=== PATIENT | male | born 1990 | race African-American/Black ===

== ENCOUNTER 2022-07-19 23:37 | Emergency (ER) | payer SELFPAY ==
[2022-07-20 00:15] LABS: Urine Blood Negative (Negative); Urine Glucose Negative (Negative); Urine Protein Negative (Negative); Urine Specific Gravity >=1.030 (1.005-1.030); Urine pH 5.5 (5.0-7.0)
[2022-07-20 00:37] LABS: Urine Bacteria <20 /HPF (<20); Urine Mucus 1+ /HPF (None Seen); Urine RBC <5 /HPF (None Seen)
[2022-07-20] MEDS ORDERED: CEFTRIAXONE 250 MG/VIAL ONE (00:45)
[2022-07-20] MEDS ORDERED: WATER FOR INJ,STERILE 10 ML ONE (00:46)
[2022-07-20] MEDS ORDERED: AZITHROMYCIN 250 MG TAB ONE (00:46)
--- NOTE | 2022-07-20 01:29 | ER ---
Nurse's Notes [facility] Name: Sebastian Wills Jr Age: 32 yrs Sex: Male : 1990 Arrival Date: 07/19/2022 Time: 23:39 Bed 16 Private MD: Diagnosis: Encounter for screening for infections with a predominantly sexual mode of transmission Presentation: 07/19 23:44 Chief complaint: White discharge from penis and burning with urination x 3 days, lower hb abdominal pain today. Coronavirus screen: At this time, the client does not indicate any symptoms associated with coronavirus-19. Ebola Screen: No symptoms or risks identified at this time. Initial Sepsis Screen: Does the patient meet any 2 criteria? No. Patient's initial sepsis screen is negative. Does the patient have a suspected source of infection? No. Patient's initial sepsis screen is negative. Risk Assessment: Do you want to hurt yourself or someone else? Patient reports no desire to harm self or others. Onset of symptoms was July 19, 2022. 23:44 Method Of Arrival: Ambulatory hb 23:44 Acuity: SANDY 3 hb 23:45 Initial Sepsis Screen: Does the patient meet any 2 criteria? Does the patient have a tw5 suspected source of infection? Yes:. Triage Assessment: 23:53 General: Appears in no apparent distress. Behavior is appropriate for age. GI: Abdomen ke1 is round non-distended. 07/20 00:00 Pain: Complains of pain in PENIS Pain currently is 0 out of 10 on a pain scale. at ke1 worst was 8 out of 10 on a pain scale. level that patient reports is acceptable is 3 out of 10 on a pain scale. Quality of pain is described as burning. Historical: - Allergies: 07/19 23:45 No Known Allergies; hb - Home Meds: 23:45 None [Active]; hb - PMHx: 23:45 None; hb - PSHx: 23:45 None; hb - Immunization history:: Adult Immunizations Client reports having NOT received the Covid vaccine. - Social history:: Smoking status: Patient reports the use of cigarette tobacco products, smokes one pack cigarettes per day. Screenin:53 Abuse screen: Denies threats or abuse. Nutritional screening: No deficits noted. ke1 Tuberculosis screening: No symptoms or risk factors identified. Fall Risk None identified. Assessment: 07/20 00:00 GI: Bowel sounds present X 4 quads. ke1 01:10 Reassessment: No changes from previously documented assessment. Patient is alert, ke1 oriented x 3, equal unlabored respirations, skin warm/dry/pink. 01:10 GI: Abd is soft and non tender. ke1 Vital Signs: 07/19 23:44 BP 158 / 76; Pulse 86; Resp 16; Temp 98.4; Pulse Ox 98% on R/A; Weight 83.91 kg; Height hb 6 ft. (182.88 cm); Pain 7/10; 07/20 01:31 BP 150 / 74; Pulse 82; Resp 17; Temp 98.3; Pulse Ox 100% on R/A; Pain 0/10; ke1 07/19 23:44 Body Mass Index 25.09 (83.91 kg, 182.88 cm) hb ED Course: 07/19 23:39 Patient arrived in ED. as 23:41 Boogie Haley PA is PHCP. cp 23:41 Monik Dee MD is Attending Physician. cp 23:45 Triage completed. hb 23:45 Arm band placed on. hb 23:47 Pavel Landin, HUMBERTO is Primary Nurse. ke1 23:54 Bed in low position. Call light in reach. ke1 07/20 00:14 Urine Microscopic Only Sent. ke1 00:46 CT Stone Protocol In Process Unspecified. EDMN 01:32 No provider procedures requiring assistance completed. ke1 01:59 Patient did not have IV access during this emergency room visit. ke1 Administered Medications: 00:51 Drug: Rocephin (cefTRIAXone) 250 mg Route: IM; Site: left deltoid; ke1 01:31 Follow up: Response: No adverse reaction ke1 00:51 Drug: Zithromax (azithromycin) 1 grams Route: PO; ke1 01:31 Follow up: Response: No adverse reaction ke1 Medication: 01:33 VIS not applicable for this client. ke1 Outcome: 01:28 Discharge ordered by . cp 01:59 Discharged to home ambulatory. ke1 01:59 Condition: good 01:59 Discharge instructions given to patient. 02:00 Patient left the ED. ke1 Signatures: Dispatcher [employer] EDMN Neftali, Boogie Sanchez PA PA cp Baxter, Heather, RN RN Charisse Valdes tw5 Pavel Landin RN RN ke1
--- NOTE | 2022-07-20 01:29 | EDPHYS ---
Physician Documentation [facility] Name: Sebastian Wills Jr Age: 32 yrs Sex: Male : 1990 Arrival Date: 07/19/2022 Time: 23:39 Bed 16 Private MD: CARLOS Physician Monik Dee HPI: 07/20 00:05 This 32 yrs old Black Male presents to ER via Ambulatory with complaints of Abdominal cp Pain. 00:05 The patient presents with abdominal pain in the lower abdomen. Onset: The cp symptoms/episode began/occurred today. The symptoms do not radiate. Associated signs and symptoms: Pertinent positives: dysuria, penile discharge. The symptoms are described as constant. Severity of pain: in the emergency department the pain is unchanged despite home interventions. Patient reports having unprotected intercourse with new partner and concerned about STD. Historical: - Allergies: 07/19 23:45 No Known Allergies; hb - Home Meds: 23:45 None [Active]; hb - PMHx: 23:45 None; hb - PSHx: 23:45 None; hb - Immunization history:: Adult Immunizations Client reports having NOT received the Covid vaccine. - Social history:: Smoking status: Patient reports the use of cigarette tobacco products, smokes one pack cigarettes per day. ROS: 07/20 00:10 Constitutional: Negative for body aches, chills, fever, poor PO intake. cp 00:10 Eyes: Negative for injury, pain, redness, and discharge. cp 00:10 ENT: Negative for drainage from ear(s), ear pain, sore throat, difficulty swallowing, difficulty handling secretions. 00:10 Cardiovascular: Negative for chest pain, palpitations. 00:10 Respiratory: Negative for cough, shortness of breath, wheezing. 00:10 Abdomen/GI: Positive for abdominal pain, of the suprapubic area, Negative for vomiting, diarrhea, constipation. 00:10 : Positive for burning with urination, penile discharge. 00:10 Neuro: Negative for altered mental status, dizziness, headache, weakness. 00:10 All other systems are negative. Exam: 00:15 Constitutional: The patient appears in no acute distress, alert, awake, non-toxic, well cp developed, well nourished. 00:15 Head/Face: Normocephalic, atraumatic. cp 00:15 Eyes: Periorbital structures: appear normal, Conjunctiva: normal, no exudate, no injection, Sclera: no appreciated abnormality, Lids and lashes: appear normal, bilaterally. 00:15 ENT: External ear(s): are unremarkable, Nose: is normal, Mouth: Lips: moist, Oral mucosa: pink and intact, moist, Posterior pharynx: Airway: no evidence of obstruction, patent. 00:15 Chest/axilla: Inspection: normal. 00:15 Cardiovascular: Rate: normal. 00:15 Respiratory: the patient does not display signs of respiratory distress, Respirations: normal, no use of accessory muscles, no retractions, labored breathing, is not present. 00:15 Abdomen/GI: Inspection: abdomen appears normal, Bowel sounds: active, all quadrants, Palpation: soft, in all quadrants, mild abdominal tenderness, in the suprapubic area, rebound tenderness, is not appreciated, involuntary guarding, is not appreciated. 00:15 Back: CVA tenderness, is absent. Vital Signs: 07/19 23:44 BP 158 / 76; Pulse 86; Resp 16; Temp 98.4; Pulse Ox 98% on R/A; Weight 83.91 kg; Height hb 6 ft. (182.88 cm); Pain 7/10; 07/20 01:31 BP 150 / 74; Pulse 82; Resp 17; Temp 98.3; Pulse Ox 100% on R/A; Pain 0/10; ke1 07/19 23:44 Body Mass Index 25.09 (83.91 kg, 182.88 cm) hb MDM: 07/19 23:45 Patient medically screened. cp 07/20 00:00 Differential diagnosis: Pyelonephritis, Ureterolithiasis, urinary tract infection, STD. cp 01:28 Data reviewed: vital signs, nurses notes, lab test result(s), radiologic studies, CT cp scan. 01:28 Counseling: I had a detailed discussion with the patient and/or guardian regarding: the cp historical points, exam findings, and any diagnostic results supporting the discharge/admit diagnosis, lab results, radiology results, the need for outpatient follow up, a family practitioner, to return to the emergency department if symptoms worsen or persist or if there are any questions or concerns that arise at home. 01:28 Special discussion: Based on the patient's Hx, exam, and Dx evaluation, there is no cp indication for emergent surgery or inpatient Tx. It is understood by the patient/guardian that if the Sx's persist or worsen they need to return immediately for re-evaluation. 07/19 23:59 Order name: Urine Microscopic Only; Complete Time: 01:22 cp 07/20 01:23 Interpretation: Reviewed. 07/20 00:16 Order name: Urine Dipstick-Ancillary; Complete Time: 00:23 EDME 07/19 23:59 Order name: CT Stone Protocol 07/20 00:43 Order name: Urine Culture EDME 07/19 23:59 Order name: Urine Dipstick-Ancillary (obtain specimen); Complete Time: 00:14 cp Administered Medications: 00:51 Drug: Rocephin (cefTRIAXone) 250 mg Route: IM; Site: left deltoid; ke1 01:31 Follow up: Response: No adverse reaction ke1 00:51 Drug: Zithromax (azithromycin) 1 grams Route: PO; ke1 01:31 Follow up: Response: No adverse reaction ke1 Disposition: 19:24 STAFF ATTESTATION STATEMENT: I was immediately available onsite in the emergency sd2 department for consultation in the care of this patient. I did not see or examine this patient. Monik Dee MD. Disposition Summary: 07/20/22 01:28 Discharge Ordered Location: Home cp Problem: new cp Symptoms: have improved cp Condition: Stable cp Diagnosis - Encounter for screening for infections with a predominantly sexual mode of cp transmission Followup: cp - With: Private Physician - When: 2 - 3 days - Reason: Recheck today's complaints Discharge Instructions: - Discharge Summary Sheet cp - Health Maintenance, Male cp - Preventing Sexually Transmitted Infections, Adult cp Forms: - Medication Reconciliation Form cp - Thank You Letter cp - Antibiotic Education cp - Prescription Opioid Use cp Prescriptions: - Doxycycline Monohydrate 100 mg Oral Tablet - take 1 tablet by ORAL route every 12 hours for 10 days; 20 tablet; Refills: 0, cp Product Selection Permitted - Ibuprofen 800 mg Oral Tablet - take 1 tablet by ORAL route every 8 hours As needed take with food; 30 tablet; cp Refills: 0, Product Selection Permitted Signatures: [facility] Boogie Haley PA PA cp Prema Blackwood RN RN hb Ebrottie, Kouassi RN RN ke1 Monik Dee, MD ANDREWS sd2
[2022-07-20 02:15] VITALS: BP 150/74; TEMP 98.3; O2SAT 100
--- NOTE | 2022-07-21 13:19 | RAD REPORT ---
EXAM DESCRIPTION: CT Abdomen and Pelvis Without Intravenous Contrast CLINICAL HISTORY: The patient is 32 years old and is Male; lower abdomen pain TECHNIQUE: Axial computed tomography images of the abdomen and pelvis without intravenous contrast. Sagittal and coronal reformatted images were created and reviewed. This CT exam was performed usi ng one or more of the following dose reduction techniques: automated exposure control, adjustment o f the mA and/or kV according to patient size, and/or use of iterative reconstruction technique. COMPARISON: No relevant prior studies available. FINDINGS: LUNG BASES: Unremarkable. No mass. No consolidation. ABDOMEN: LIVER: Homogeneous without focal mass. GALLBLADDER AND BILE DUCTS: No calcified stones. No ductal dilation. PANCREAS: Unremarkable. No ductal dilation. SPLEEN: Unremarkable. ADRENALS: Unremarkable. No mass. KIDNEYS AND URETERS: No obstructing stones. No hydronephrosis. No perinephric fluid. STOMACH AND BOWEL: The stomach is distended with food contents. The small bowel is normal in taye vicki. Stool is present throughout colon. There is no mucosal thickening or evidence of bowel obstructi on. PELVIS: APPENDIX: The appendix is normal in caliber without surrounding inflammation. BLADDER: The bladder is not well distended. The bladder is nearly empty. REPRODUCTIVE: Unremarkable as visualized. ABDOMEN and PELVIS: INTRAPERITONEAL SPACE: Unremarkable. No free air. No significant fluid collection. BONES/JOINTS: No acute fracture. SOFT TISSUES: The soft tissues are normal. VASCULATURE: Multiple calcified phleboliths are present within the pelvis. No abdominal aortic aneurysm. LYMPH NODES: Unremarkable. No enlarged lymph nodes. IMPRESSION: No acute findings on this noncontrasted CT of the abdomen and pelvis to explain the donato ent's symptoms. Electronically signed by: Autumn Mcgee MD 07/20/2022 1:02 AM VIDEO MACHINES MECHANIC Due to temporary technical issues with the PACS/Fluency reporting system, reports are being signed by the in house radiologists without review as a courtesy to insure prompt reporting. The interpreting radiologist is fully responsible for the content of the report.
== END 2022-07-20 02:00 | disposition home or self-care (01) ==
LOC: ER 23:37
DX: Z11.3 Encounter for screening for infections with a predominantly sexual mode of transmission (principal)
CPT/HCPCS: 74176; 76377; 81003; 81015; 87086; 87088; 96372; 99283; J0696; Q0144

== ENCOUNTER 2023-03-14 09:12 | Emergency (ER) | payer SELFPAY ==
--- OUTSIDE RECORDS SUMMARY | 2023-03-14 09:16 | XMS REPORT | Continuity of Care Document ---
:1990 Author Organization [facility] t Address [address] [place] [address] Care Team Providers Name Role Phone ESTHER DON Attending Clinician Unavailable Problems This patient has no known problems. Allergies, Adverse Reactions, Alerts This patient has no known allergies or adverse reactions. Medications This patient has no known medications. Procedures This patient has no known procedures. Encounters Start End Encounter Admission Attending Care Care Encounter Source Date/Time Date/Time Type Type Clinicians Facility Department ID 2020-06-22 2020-06-22 Emergency E [facility]UNI DON [id number] 12:07:00 12:38:00 ESTHER Results This patient has no known results.
[2023-03-14] MEDS ORDERED: ACETAMINOPHEN 500 MG TAB ONE (09:40)
[2023-03-14] MEDS ORDERED: DIPHENHYDRAMINE 50 MG/ML VIAL ONE (09:40)
[2023-03-14] MEDS ORDERED: KETOROLAC 30 MG/ML INJ ONE (09:41)
[2023-03-14] MEDS ORDERED: NA CHLORIDE 0.9% 1,000 ML ONE (09:41)
[2023-03-14] MEDS ORDERED: dexAMETHasone 10 MG/ML VIAL ONE (09:41)
[2023-03-14] MEDS ORDERED: METOCLOPRAMIDE 10 MG/2mL INJ ONE (09:55)
[2023-03-14 09:58] LABS: Absolute Lymphocytes (CBC) 0.7 K/uL (0.7-4.9); Hematocrit 42.9 % (39.6-49.0); Lymphocytes % 12.6 % (15.3-44.8); MPV 7.9 fL (7.6-11.3); RBC Red Blood Cell Count 5.11 M/uL (4.33-5.43)
[2023-03-14 10:19] LABS: Potassium 3.7 mEq/L (3.5-5.1)
--- NOTE | 2023-03-14 10:37 | ER ---
Nurse's Notes [facility] Name: Sebastian Wills Jr Age: 32 yrs Sex: Male : 1990 Arrival Date: 03/14/2023 Time: 09:12 Bed 17 Private MD: Diagnosis: Influenza due to identified novel influenza A virus-B Presentation: 03/14 09:23 Chief complaint: Migraine, chills, and body aches x 3 days. Denies N/V/D. Coronavirus hb screen: Client presents with at least one sign or symptom that may indicate coronavirus-19. Provider contacted for isolation considerations. Ebola Screen: No symptoms or risks identified at this time. Initial Sepsis Screen: Does the patient meet any 2 criteria? No. Patient's initial sepsis screen is negative. Does the patient have a suspected source of infection? No. Patient's initial sepsis screen is negative. Risk Assessment: Do you want to hurt yourself or someone else? Patient reports no desire to harm self or others. Onset of symptoms was March 11, 2023. 09:23 Method Of Arrival: Ambulatory hb 09:23 Acuity: SANDY 3 hb Historical: - Allergies: 09:24 No Known Allergies; hb - Home Meds: 09:24 None [Active]; hb - PMHx: 09:24 None; hb - PSHx: 09:24 None; hb - Immunization history:: Adult Immunizations up to date. - Social history:: Smoking status: Patient denies any tobacco usage or history of. Screenin:24 [facility] ED Fall Risk Assessment (Adult) Score/Fall Risk Level 0 - 2 = Low Risk hb Oriented to surroundings, Maintained a safe environment. Abuse screen: Denies threats or abuse. Denies injuries from another. Nutritional screening: No deficits noted. Tuberculosis screening: No symptoms or risk factors identified. Assessment: 09:47 General: Appears in no apparent distress. Behavior is calm, cooperative, appropriate ap3 for age. General: Appears ill, Behavior is. Pain: Complains of pain in head Pain began 2-3 days ago. Neuro: Level of Consciousness is awake, alert, obeys commands, Oriented to person, place, time. Respiratory: Airway is patent Respiratory effort is even, unlabored. Vital Signs: 09:23 BP 135 / 84; Pulse 99; Resp 18; Temp 100.3(O); Pulse Ox 99% on R/A; Weight 90.72 kg; hb Height 6 ft. 0 in. ; Pain 9/10; 09:23 Body Mass Index 27.12 (90.72 kg, 182.88 cm) hb 09:23 Pain Scale: Adult hb ED Course: 09:14 Patient arrived in ED. ts1 09:14 Dayana Figueroa FNP-C [facility]. kb 09:14 Boogie Hdz MD is Attending Physician. kb 09:24 Triage completed. hb 09:24 Pretty Ball, HUMBERTO is Primary Nurse. ap3 09:24 Arm band placed on. hb 09:24 Patient has correct armband on for positive identification. Provided Education on: . hb 09:47 Inserted saline lock: 20 gauge in right antecubital area, using aseptic technique. ap3 Blood collected. 09:47 Initial lab(s) drawn, by me, COVID swab sent to lab. Flu and/or RSV swab sent to lab. ap3 10:53 No provider procedures requiring assistance completed. IV discontinued, intact, ap3 bleeding controlled, No redness/swelling at site. Pressure dressing applied. Administered Medications: 09:48 Drug: NS 0.9% IV 1000 ml Route: IV; Rate: 1000 ml; Site: right antecubital; ap3 10:54 Follow up: Response: No adverse reaction; IV Status: Completed infusion ap3 09:48 Drug: diphenhydrAMINE IVP 12.5 mg Route: IVP; Site: right antecubital; ap3 10:54 Follow up: Response: No adverse reaction ap3 09:48 Drug: Ketorolac IVP 15 mg Route: IVP; Site: right antecubital; ap3 10:54 Follow up: Response: No adverse reaction ap3 09:48 Drug: metoCLOPramide IVP 10 mg Route: IVP; Site: right antecubital; ap3 10:54 Follow up: Response: No adverse reaction ap3 09:48 Drug: Decadron - Dexamethasone IVP 10 mg Route: IVP; Site: right antecubital; ap3 10:54 Follow up: Response: No adverse reaction ap3 09:48 Drug: Acetaminophen PO 1000 mg Route: PO; ap3 10:54 Follow up: Response: No adverse reaction; Pain is decreased ap3 Medication: 09:25 VIS not applicable for this client. hb Outcome: 10:36 Discharge ordered by MD. laboy 10:53 Discharged to home via wheelchair, with family. ap3 10:53 Condition: good 10:53 Discharge instructions given to patient, family, Instructed on discharge instructions, follow up and referral plans. Demonstrated understanding of instructions, follow-up care. 10:59 Patient left the ED. ap3 Signatures: Dayana Figueroa, KVNG-C MOLD SHAKER-CkPrema Mcnulty RN RN Pretty Ball RN RN ap3 Marcy Hurley, GLORIA PAS ts1
--- NOTE | 2023-03-14 10:37 | EDPHYS ---
Physician Documentation [facility] Name: Sebastian Wills Jr Age: 32 yrs Sex: Male : 1990 Arrival Date: 03/14/2023 Time: 09:12 Bed 17 Private MD: ED Physician Boogie Hdz HPI: 03/14 09:24 This 32 yrs old Black Male presents to ER via Ambulatory with complaints of Severe kb Migrane, Fever. 09:24 The patient or guardian reports flu symptoms, myalgias. Onset: The symptoms/episode kb began/occurred 3 day(s) ago. Severity of symptoms: At their worst the symptoms were moderate, in the emergency department the symptoms are unchanged. Modifying factors: The symptoms are alleviated by nothing, the symptoms are aggravated by nothing. Associated signs and symptoms: Pertinent positives: headache. The patient has not experienced similar symptoms in the past. The patient has not recently seen a physician. Pt reports headache, chills, and bodyaches for 3 days. Historical: - Allergies: 09:24 No Known Allergies; hb - Home Meds: 09:24 None [Active]; hb - PMHx: 09:24 None; hb - PSHx: 09:24 None; hb - Immunization history:: Adult Immunizations up to date. - Social history:: Smoking status: Patient denies any tobacco usage or history of. ROS: 09:24 Respiratory: Negative for shortness of breath, cough, wheezing, and pleuritic chest kb pain. 09:24 Constitutional: Positive for body aches, chills. 09:24 Neuro: Positive for headache. 09:24 All other systems are negative. Exam: 09:24 Constitutional: This is a well developed, well nourished patient who is awake, alert, kb and in no acute distress. Head/Face: Normocephalic, atraumatic. Eyes: Pupils equal round and reactive to light, extra-ocular motions intact. Lids and lashes normal. Conjunctiva and sclera are non-icteric and not injected. Cornea within normal limits. Periorbital areas with no swelling, redness, or edema. ENT: Moist Mucous membranes Cardiovascular: Regular rate and rhythm with a normal S1 and S2. No gallops, murmurs, or rubs. No pulse deficits. Respiratory: Respirations even and unlabored. No increased work of breathing. Talking in full sentences Skin: Warm, dry with normal turgor. Normal color. MS/ Extremity: Pulses equal, no cyanosis. Neurovascular intact. Full, normal range of motion. Neuro: Awake and alert, GCS 15, oriented to person, place, time, and situation. Moves all extremities. Normal gait. Vital Signs: 09:23 BP 135 / 84; Pulse 99; Resp 18; Temp 100.3(O); Pulse Ox 99% on R/A; Weight 90.72 kg; hb Height 6 ft. 0 in. ; Pain 910; 09:23 Body Mass Index 27.12 (90.72 kg, 182.88 cm) hb 09:23 Pain Scale: Adult hb MDM: 09:14 Patient medically screened. kb 09:24 Data reviewed: vital signs, nurses notes. kb 09:25 Differential Diagnosis: Influenza Sinusitis Otitis Media Viral Syndrome Other covid. kb 10:09 Counseling: I had a detailed discussion with the patient and/or guardian regarding: the kb historical points, exam findings, and any diagnostic results supporting the discharge/admit diagnosis, lab results, the need for outpatient follow up, a family practitioner, to return to the emergency department if symptoms worsen or persist or if there are any questions or concerns that arise at home. 03/14 09:23 Order name: CBC with Diff; Complete Time: 10:05 kb 03/14 09:23 Order name: Basic Metabolic Panel; Complete Time: 10:20 kb 03/14 09:23 Order name: SARS-COV-2 RT PCR; Complete Time: 10:36 kb 03/14 09:23 Order name: Flu; Complete Time: 10:09 kb 03/14 09:23 Order name: [place] Screen Profile; Complete Time: 10:36 kb 03/14 09:23 Order name: IV Start; Complete Time: 09:48 kb Administered Medications: 09:48 Drug: NS 0.9% IV 1000 ml Route: IV; Rate: 1000 ml; Site: right antecubital; ap3 10:54 Follow up: Response: No adverse reaction; IV Status: Completed infusion ap3 09:48 Drug: diphenhydrAMINE IVP 12.5 mg Route: IVP; Site: right antecubital; ap3 10:54 Follow up: Response: No adverse reaction ap3 09:48 Drug: Ketorolac IVP 15 mg Route: IVP; Site: right antecubital; ap3 10:54 Follow up: Response: No adverse reaction ap3 09:48 Drug: metoCLOPramide IVP 10 mg Route: IVP; Site: right antecubital; ap3 10:54 Follow up: Response: No adverse reaction ap3 09:48 Drug: Decadron - Dexamethasone IVP 10 mg Route: IVP; Site: right antecubital; ap3 10:54 Follow up: Response: No adverse reaction ap3 09:48 Drug: Acetaminophen PO 1000 mg Route: PO; ap3 10:54 Follow up: Response: No adverse reaction; Pain is decreased ap3 Disposition Summary: 03/14/23 10:36 Discharge Ordered Location: Home kb Condition: Stable kb Diagnosis - Influenza due to identified novel influenza A virus - B kb Followup: kb - With: Emergency Department - When: As needed - Reason: Worsening of condition Followup: kb - With: Private Physician - When: 2 - 3 days - Reason: Recheck today's complaints, Continuance of care, Re-evaluation by your physician Discharge Instructions: - Discharge Summary Sheet kb - Influenza, Adult, [id number] kb Forms: - Medication Reconciliation Form kb - Thank You Letter kb - Antibiotic Education kb - Prescription Opioid Use kb - Patient Portal Instructions kb Signatures: Dispatcher [employer] Dayana Mcnally, KVNG-C KVNG-Prema Barron, RN RN Pretty Keller RN RN ap3
[2023-03-14 11:10] VITALS: BP 135/84; TEMP 100.3; O2SAT 99
== END 2023-03-14 10:59 | disposition home or self-care (01) ==
LOC: ER 09:12
DX: J10.1 Influenza due to other identified influenza virus with other respiratory manifestations (principal); Z20.822 Contact with and (suspected) exposure to COVID-19
CPT/HCPCS: 36415; 80048; 85025; 86308; 87635; 87804; 96361; 96374; 96375; 99284; J1100; J1200; J2765; J7030